=== PATIENT | female | born 1960 | race Caucasian/White ===

== ENCOUNTER → 2016-05-29 | Outpatient (CLI) | payer BC ==
--- NOTE | 2016-05-29 13:53 | Diagnostic Imaging Report ---
Three views of the left knee. INDICATION: Left knee pain. FINDINGS: There is no fracture, dislocation, or radiopaque foreign body. No suprapatellar effusion seen. Minimal spurring in the tibial spine is noted. IMPRESSION: No significant abnormality. Dictated by: Dictated on workstation # [id number]
== END ==
LOC: RAD 10:22
PROVIDERS: ATTEND Nurse Practitioner Family
DX: M25.562 Pain in left knee (principal)
CPT/HCPCS: 73562

== ENCOUNTER → 2016-08-06 | Outpatient (CLI) | payer BC ==
--- NOTE | 2016-08-06 17:13 | Diagnostic Imaging Report ---
PROCEDURE: MRI left joint lower extremity without contrast. TECHNIQUE: Multiplanar, multisequence MR imaging of the left knee was performed without contrast. COMPARISON: None available. INDICATION: Knee pain, most pronounced anteriorly. FINDINGS: MENISCI Medial meniscus: Normal. Lateral meniscus: Normal. LIGAMENTS ACL: Intact. PCL: Intact. MCL: Intact. LCL: The lateral collateral ligamentous complex is intact. EXTENSOR MECHANISM The extensor mechanism is normal. CARTILAGE Medial compartment: Medial compartment articular cartilage is well preserved without focal high-grade chondromalacia. Lateral compartment: The lateral compartment articular cartilage is preserved without high-grade chondromalacia. Patellofemoral compartment: Focal low-grade partial-thickness chondromalacia involving the lateral patellar facet. There is also low-grade partial-thickness fibrillation of the surface of the patellar apex. No full-thickness chondromalacia or chondral delamination. BONE No fracture, stress fracture or osteonecrosis. SOFT TISSUE: No knee effusion or Hudson's cyst. IMPRESSION: 1. 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 No full-thickness chondromalacia. 2. No other internal derangement. 3. The extensor mechanism is normal. Dictated by: Dictated on workstation # [id number]
== END ==
LOC: RAD 16:07
PROVIDERS: ATTEND Nurse Practitioner Family
DX: M22.42 Chondromalacia patellae, left knee (principal)
CPT/HCPCS: 73721